=== PATIENT | female | born 1955 | race Asian ===

== ENCOUNTER 2020-08-03 12:47 | Emergency (ER) | payer MEDICAID ==
[~2020-08-03] VITALS: Ht 149.9 cm; Wt 48.5 kg
[2020-08-03 12:58] VITALS: BP_SYST 128
[2020-08-03 13:16] LABS: BASOPHILS # (AUTO) 0.1 K/uL (0.0-0.2); BASOPHILS % (AUTO) 0.7 % (0.0-2.0); EOSINOPHILS # (AUTO) 0.3 K/uL (0.0-0.4); EOSINOPHILS % (AUTO) 3.6 % (0.0-4.0); HEMATOCRIT 40.9 % (36-48); HEMOGLOBIN 13.6 g/dL (12.0-16.0); LYMPHOCYTES # (AUTO) 1.9 K/uL (1.0-5.5); LYMPHOCYTES % (AUTO) 27.7 % (20.5-51.5); MEAN CORPUSCULAR HEMOGLOBIN 31 pg (27-31); MEAN CORPUSCULAR HGB CONC 33 % (32-36); MEAN CORPUSCULAR VOLUME 92 fL (79.0-98.0); MONOCYTES # (AUTO) 0.4 K/uL (0.0-1.0); MONOCYTES % (AUTO) 5.2 % (1.7-9.3); NEUTROPHILS # (AUTO) 4.4 K/uL (1.8-7.7); NEUTROPHILS % (AUTO) 62.8 % (40.0-70.0); PLATELET COUNT (AUTO) 276 K/uL (130-430); RED BLOOD CELL COUNT(AUTO) 4.42 MIL/uL (4.2-6.2); RED CELL DISTRIBUTION WIDTH 12.9 % (9.0-15.0)
[2020-08-03 13:33] LABS: CALCIUM 8.6 mg/dL (8.4-11.0); CREATININE 1.27 mg/dL (0.55-1.30); POTASSIUM 4.1 mmol/L (3.5-5.1)
[2020-08-03 13:39] LABS: ALBUMIN 3.5 g/dL (3.4-4.8); TOTAL BILIRUBIN 0.3 mg/dL (0.0-1.0)
[2020-08-03 15:11] VITALS: BP_SYST 128
== END 2020-08-03 15:12 | disposition home or self-care (01) ==
LOC: SED 12:47
DX: R10.31 Right lower quadrant pain (principal)
CPT/HCPCS: 36415; 80053; 81002; 83690-TC; 85025; 99284

== ENCOUNTER 2020-08-06 12:23 | Emergency (ER) | payer MEDICAID ==
[~2020-08-06] VITALS: Ht 139.7 cm; Wt 65.8 kg
[2020-08-06 12:32] VITALS: BP_SYST 139
--- NOTE | 2020-08-06 12:45 | NUR ---
Patient transported to radiology via wheelchair, accompanied by staff.
--- NOTE | 2020-08-06 13:00 | NUR ---
Patient to ER bed 07 to gown for evaluation. Side rails up.
--- NOTE | 2020-08-06 13:02 | NUR ---
Pt sid by self, A&Ox4, pt presents to ER with R lower abdominal pain, denies N/V/D/C, skin pink and warm, cap refill <34, VSS, respirations even and unlabored.
--- NOTE | 2020-08-06 13:15 | NUR ---
Lab at bedside for blood draw.
[2020-08-06 13:23] LABS: BASOPHILS % (AUTO) 0.6 % (0.0-2.0); EOSINOPHILS # (AUTO) 0.2 K/uL (0.0-0.4); EOSINOPHILS % (AUTO) 3.1 % (0.0-4.0); HEMATOCRIT 41.7 % (36-48); LYMPHOCYTES # (AUTO) 1.7 K/uL (1.0-5.5); LYMPHOCYTES % (AUTO) 23.7 % (20.5-51.5); MEAN CORPUSCULAR HEMOGLOBIN 31 pg (27-31); MEAN CORPUSCULAR HGB CONC 34 % (32-36); MEAN CORPUSCULAR VOLUME 92 fL (79.0-98.0); MONOCYTES # (AUTO) 0.4 K/uL (0.0-1.0); MONOCYTES % (AUTO) 5.2 % (1.7-9.3); NEUTROPHILS # (AUTO) 4.8 K/uL (1.8-7.7); NEUTROPHILS % (AUTO) 67.4 % (40.0-70.0); PLATELET COUNT (AUTO) 293 K/uL (130-430); RED BLOOD CELL COUNT(AUTO) 4.55 MIL/uL (4.2-6.2); RED CELL DISTRIBUTION WIDTH 13.4 % (9.0-15.0); WHITE BLOOD COUNT (AUTO) 7.1 K/uL (4.8-10.8)
--- NOTE | 2020-08-06 13:24 | NUR ---
Dr Mauro evaluating patient at bedside
--- NOTE | 2020-08-06 13:30 | NUR ---
Urine sample collected and sent to lab as per MD order.
[2020-08-06] MEDS ORDERED: METF-510 PO (13:35)
[2020-08-06] MEDS ORDERED: TAMS-11 PO (13:35)
[2020-08-06] MEDS ORDERED: POTA20TA83 PO (13:35)
[2020-08-06] MEDS ORDERED: MONT10TA27 PO (13:35)
[2020-08-06] MEDS ORDERED: GLIP5TAB13 PO (13:35)
[2020-08-06] MEDS ORDERED: ARGI500T4 PO (13:35)
[2020-08-06] MEDS ORDERED: CAT.1 PO (13:35)
[2020-08-06] MEDS ORDERED: OMEP20CA15 PO (13:35)
[2020-08-06] MEDS ORDERED: NIFE20CA PO (13:35)
[2020-08-06] MEDS ORDERED: MOM PO (13:35)
[2020-08-06] MEDS ORDERED: FURO-150 PO (13:35)
[2020-08-06] MEDS ORDERED: TOPXL100 PO (13:35)
[2020-08-06 13:45] LABS: BILIRUBIN,URINE NEGATIVE (NEGATIVE); COLOR,URINE YELLOW (YELLOW); GLUCOSE,URINE NEGATIVE (NEGATIVE); KETONES,URINE NEGATIVE (NEGATIVE); LEUKOCYTE ESTERASE ,URINE NEGATIVE (NEGATIVE); NITRITE, URINE NEGATIVE (NEGATIVE); PH,URINE 7.5 (5.0-8.0); PROTEIN URINE NEGATIVE (NEGATIVE); UROBILINOGEN,URINE 0.2 (0.2-1.0)
[2020-08-06 13:47] LABS: CALCIUM 8.8 mg/dL (8.4-11.0); CREATININE 1.08 mg/dL (0.55-1.30)
[2020-08-06 13:51] LABS: BLOOD, URINE TRACE (NEGATIVE)
[2020-08-06 13:52] LABS: CLARITY/URINE HAZY (CLEAR)
[2020-08-06 14:02] LABS: BACTERIA,URINE FEW /HPF (None Seen); WBC,URINE 0-3 /HPF (0-3)
[2020-08-06 14:02] LABS: ALBUMIN 3.8 g/dL (3.4-4.8); TOTAL BILIRUBIN 0.4 mg/dL (0.0-1.0)
[2020-08-06 14:03] LABS: URINE AMORPHOUS PHOSPHATES 2+ /HPF (None Seen)
--- NOTE | 2020-08-06 14:58 | NUR ---
Admit orders received from Dr. Castro, pt to go to Med-surg. Talk to Nitish, rn relief charge. Will call me back with bed assignment.
[2020-08-06] MEDS ORDERED: metroNIDAZOLE 500 mg/NS 100 ML IV ONE ×2 (15:00→17:34)
[2020-08-06] MEDS ORDERED: NACL 0.9% 1,000 ML IV ONE (15:00)
--- NOTE | 2020-08-06 15:16 | NUR ---
Dr. Aragon, [facility] doc, called back to speak to Dr. Mauro regarding pt status.
--- NOTE | 2020-08-06 15:20 | NUR ---
# 20 gauge angiocath placed to LAC. Use of asceptic technique. Opsite placed over site. Blood return noted. Blood for lab drawn from site. Flushed with 10 cc of normal saline. No evidence of infiltration noted. Patient tolerated well.
--- NOTE | 2020-08-06 15:21 | NUR ---
Rachel, [facility] admitting manager, stated that she will put pt on willcall for [facility] and when we receive pt transfer info to call [facility] to activate transfer call.
--- NOTE | 2020-08-06 16:14 | NUR ---
TRES, ALLIED ORAL AND MAXILLOFACIAL PATHOLOGIST, REQUESTED FAX OF CLINICALS AND FACESHEET. F: [phone]
[2020-08-06 16:37] LABS: INR 0.9 (0.8-1.2); PROTHROMBIN TIME 9.4 SECS (9.5-12.5)
--- NOTE | 2020-08-06 18:12 | NUR ---
Called [phone] to give report. RASHEED Atwood, stated she will call me back because they are in the middle of change of shift.
--- NOTE | 2020-08-06 18:37 | NUR ---
Report called to MOY Atwood at [facility]. ETA for transportation 19:45.
--- NOTE | 2020-08-06 19:04 | NUR ---
Care of patient endorsed to MOY Fisher. Currently resting in bed, awaiting transfer to [facility]. No distress noted.
--- NOTE | 2020-08-06 19:10 | NUR ---
REPORT RECEIVED FROM MOY PHELPS FOR CONTINUING CARE
[2020-08-06 20:28] VITALS: BP_SYST 134
--- NOTE | 2020-08-06 20:30 | NUR ---
Patient to be transferred to [facility]. Is being transferred due to higher level of care. Receiving facility has accepting physician and available space. ER physician has signed transfer form. Patient or responsible libertarian has agreed to transfer and signed form. Patient belongings inventoried and will be sent with patient. Copy of nursing notes, lab reports, EKG, Physicians Orders and X-rays to be sent with patient. Report called to MOY AZUL at receiving facility. Receiving physician is DR. VALDEZ. [facility] has been called for transfer. ETA is [phone].
== END 2020-08-06 20:30 | disposition short-term general hospital (02) ==
LOC: SED 12:23
DX: R10.31 Right lower quadrant pain (principal); Z88.0 Allergy status to penicillin
CPT/HCPCS: 36415; 71045; 74176; 80053; 81000; 83605; 85025; 85610; 85730; 86886; 86900; 86901; 87040; 93005; 96361; 96365; 96368; 99285; J1956; J3490; J7030